=== PATIENT | male | born 1970 | race Caucasian/White ===

== ENCOUNTER 2020-07-02 11:43 | Emergency (ER) | payer BC, SELFPAY ==
[2020-07-02 11:57] VITALS: BP 133/68; PULSE 91; RESP 20; TEMP 36.7; O2SAT 98
[2020-07-02 12:06] LABS: Glucose Point of Care 125 (65-105)
--- NOTE | 2020-07-02 12:08 | ED.GENADULT ---
HPI - General Adult General Chief complaint: Extremity Problem,Nontraumatic Stated complaint: right knee/gout flare up Source: patient Mode of arrival: ambulatory Limitations: no limitations History of Present Illness HPI narrative: Patient presents for evaluation of right knee pain for the last 2 days. He states that he has a history of gout and this feels similar. Current pain is rated 8 on a scale of 1-10, without descriptive quality. Pain is worse with movement and weightbearing. No identified precipitating cause or injury. In the past he has taken indomethacin which seems to help if he catches the flare immediately. He states that he feels like he needs something stronger than indomethacin at this time. He is diabetic but states that he is compliant with metformin and blood sugars have been running in the 120s. He is not on allopurinol. No additional complaints or concerns. Related Data Home Medications Medication Instructions Recorded Confirmed metformin 500 mg BID 07/02/20 07/02/20 Allergies Allergy/AdvReac Type Severity Reaction Status Date / Time No Known Allergies Allergy Verified 06/04/18 12:02 Review of Systems Review of Systems: Narrative: CONSTITUTIONAL: Denies fever, chills, or sweats. EYES: Denies visual changes, redness, or discharge. ENT: Denies rhinorrhea, congestion, sore throat, or otalgia. CARDIOVASCULAR: Denies chest pain, palpitations, or edema. RESPIRATORY: Denies cough or dyspnea. GASTROINTESTINAL: Denies abdominal pain, nausea, vomiting, or diarrhea. GENITOURINARY: Denies dysuria or hematuria. SKIN: Denies rash or itching. MUSCULOSKELETAL: Denies back pain myalgia. Reports right knee pain NEUROLOGIC: Denies headache, numbness, dizziness, or weakness. PSYCHIATRIC: Denies anxiety or depression. [facility] Past Medical History Medical History (Updated 07/02/20 @ 12:14 by Edouard Britton, WARREN, ) Diabetes type 2, controlled Gout Surgical History Surgical History H/O arthroscopy Family History Family History Mother Primary pancreatic cancer with metastasis to other site Social History Social History Smoking packs per day: 1.5 Smoking cigarettes per day: 30.0 Smoking status: Current every day smoker Tobacco type: cigarettes Alcohol intake: current Alcohol use details: social Substance use: never Living arrangements: with family Gender identity (if verbalized by the patient): Male Exam Narrative: Exam Narrative: GENERAL: Well-appearing, well-nourished, and in no acute distress. HEAD: Normocephalic, atraumatic. EYES: PERRLA and EOMI. ENT: Nares clear, no rhinorrhea or epistaxis. Mucous membranes moist. Oropharynx without tonsillar hypertrophy exudate or other lesions. Bilateral TMs pearly morejon nonbulging NECK: Supple. No adenopathy or masses. No carotid bruits or JVD CHEST: Clear to auscultation. No respiratory distress. No wheezes rales or rhonchi HEART: Regular rate and rhythm. No murmur heard. Normal peripheral pulses. ABDOMEN: Soft, nontender, nondistended, normal active bowel sounds. EXTREMITIES: Full range of motion of the right knee without crepitus or deformity. There is a trace amount of nonpitting edema noted to the anterior aspect of the right knee. Tenderness noted to medial aspect of right knee SKIN: Warm, dry, no rash. NEURO: No focal deficits. Alert and oriented x3. PSYCH: Normal mood and affect. Course Vital Signs Vital signs: Vital Signs Temperature 36.7 C 07/02/20 11:57 Pulse Rate 91 07/02/20 11:57 Respiratory Rate 07/02/20 11:57 Blood Pressure 133/68 07/02/20 11:57 Pulse Oximetry 98 07/02/20 11:57 Temperature 36.7 C 07/02/20 11:57 Pulse Rate 91 07/02/20 11:57 Respiratory Rate 07/02/20 11:57 Blood Pressure 133/6
== END 2020-07-02 12:22 | disposition home or self-care (01) ==
PROVIDERS: Emergency Provider Nurse Practitioner; PCP Nurse Practitioner Psychiatric/Mental Health
DX: M10.9 Gout, unspecified (principal); F17.200 Nicotine dependence, unspecified, uncomplicated; E11.9 Type 2 diabetes mellitus without complications
CPT/HCPCS: 82948; 99213; G0463